=== PATIENT | male | born 1955 | race Caucasian/White ===

== ENCOUNTER 2017-11-29 08:32 | Inpatient (IN) | payer BC ==
[2017-11-29] MEDS: LACTATED RINGER'S 1,000 ML IV* (06:00)
[~2017-11-29 08:32] MED LIST: ATROPINE 1 MG/10 ML SYRINGE IV; DIPHENHYDRAMINE 50 MG INJ IV; FENTAnyl 50 MCG/ML VIAL IV; HYDROmorphONE (0.2 MG/ML) 10ML SYG IV; LABETALOL HCL 20MG INJ IV; MEPERIDINE 25 MG INJ IV; MIDAZOLAM 1 MG/ML 2 ML INJ IV; ONDANSETRON 4 MG INJ IV; OXYCODONE/ACETAMINOPHEN (5/325) TAB PO; hydrALAzine 20 MG INJ IV; morphine (1 MG/ML) 10ML SYRINGE IV
[2017-11-29] MEDS ORDERED: FENTAnyl 50 MCG/ML VIAL ×2 (10:19→11:17)
[2017-11-29] MEDS ORDERED: GLYCOPYRROLATE 0.4 MG INJ ×2 (10:19→11:17)
[2017-11-29] MEDS ORDERED: ROCURONIUM 50 MG INJ ×2 (10:19→11:17)
[2017-11-29] MEDS ORDERED: LIDOCAINE 2% (SDV) 5 ML INJ ×2 (10:19→11:17)
[2017-11-29] MEDS ORDERED: NEOSTIGMINE 3 MG/3 ML SYRINGE ×2 (10:19→11:17)
[2017-11-29] MEDS ORDERED: PROPOFOL 20 ML ×2 (10:19→11:17)
[2017-11-29] MEDS ORDERED: MIDAZOLAM 1 MG/ML 2 ML INJ ×2 (10:20→11:17)
[2017-11-29] MEDS: CEFAZOLIN 2 GM/50 ML (PMX) 50 ML IVPB (11:14)
[2017-11-29] MEDS ORDERED: DEXAMETHASONE 4 MG/ML 1 ML INJ (11:17)
[2017-11-29] MEDS: POLYMYXIN/BACITRACIN 1L IRRIG (12:46)
[2017-11-29] MEDS: BUPIVACAINE 0.25% (MPF) 30 ML INJ (12:46)
[2017-11-29] MEDS ORDERED: LABETALOL HCL 20MG INJ (12:55)
[2017-11-29] MEDS ORDERED: LIDOCAINE 4% CR (13:13)
[2017-11-29] MEDS ORDERED: ONDANSETRON 4 MG INJ IV (14:30)
[2017-11-29] MEDS ORDERED: AL HYDROX/MG HYDROX/SIMETH 30 ML CUP PO (14:30)
[2017-11-29] MEDS ORDERED: DIAZEPAM 5 MG/ML SYG IM (14:30)
[2017-11-29] MEDS ORDERED: DIAZEPAM 5 MG TAB PO (14:30)
[2017-11-29] MEDS ORDERED: NACL 0.9% 3 ML SYG IV (14:30)
[2017-11-29] MEDS ORDERED: BETHANECHOL 25 MG TAB PO (14:30)
[2017-11-29] MEDS ORDERED: HYDROCODONE/APAP (5/325) TAB PO (14:30)
[2017-11-29] MEDS ORDERED: PROCHLORPERAZINE 10 MG TAB PO (14:30)
[2017-11-29] MEDS ORDERED: ZOLPIDEM 5 MG TAB PO (14:30)
[2017-11-29] MEDS ORDERED: ACETAMINOPHEN 325 MG TAB PO (14:30)
[2017-11-29] MEDS ORDERED: NALOXONE (0.4 MG/ML) INJ IV (14:30)
[2017-11-29] MEDS ORDERED: TRIMETHOBENZAMIDE 100 MG/ML VIAL IM (14:30)
[2017-11-29] MEDS ORDERED: DIPHENHYDRAMINE 50 MG CAP PO (14:30)
[2017-11-29] MEDS: EPHEDrine SULFATE 50 MG/5 ML SYG IV (14:39)
[2017-11-29] MEDS: HYDROmorphONE 0.2 MG/ML PCA IV (14:45)
[2017-11-29] MEDS: FENTAnyl 50 MCG/ML VIAL IV ×2 (14:52→15:16)
[2017-11-29] MEDS: CEFAZOLIN 1 GM/50 ML (PMX) 50 ML IVPB ×2 (17:28→23:06)
[2017-11-29] MEDS: DEXTROSE 5%-0.45% NACL 1,000 ML IV ×2 (18:45→18:46)
[2017-11-29] MEDS: DEXTROSE 5%-0.45% NACL 500 ML BAG IV (18:47)
[2017-11-29] MEDS: RANITIDINE 150 MG TAB PO (20:51)
[2017-11-30] MEDS: DEXTROSE 5%-0.45% NACL 1,000 ML IV ×3 (03:45→23:45)
[2017-11-30] MEDS: CEFAZOLIN 1 GM/50 ML (PMX) 50 ML IVPB ×2 (05:29→12:03)
[2017-11-30 05:42] LABS: HEMATOCRIT 37.2 % (42.0-52.0); HEMOGLOBIN 12.8 g/dl (14.0-18.0)
[2017-11-30] MEDS: CEPASTAT LOZENGE MT ×2 (05:49→20:11)
[2017-11-30 06:24] LABS: ANION GAP 13 (8-16); BLOOD UREA NITROGEN 19 mg/dl (7-20); CALCIUM 9.1 mg/dl (8.4-10.2); CARBON DIOXIDE 26 mmol/L (21-31); CHLORIDE 103 mmol/L (97-110); CREATININE 0.95 mg/dl (0.61-1.24); GLUCOSE 121 mg/dl (70-220); SODIUM 138 mmol/L (135-144)
[2017-11-30] MEDS: RANITIDINE 150 MG TAB PO ×2 (08:40→20:11)
[2017-11-30] MEDS: FERROUS SULFATE (EC) 325 MG TAB PO ×3 (08:40→20:11)
[2017-11-30] MEDS: DOCUSATE SODIUM 100 MG CAP PO ×2 (08:41→20:11)
[2017-11-30] MEDS: ASCORBIC ACID 500 MG TAB PO ×2 (08:41→20:11)
[2017-11-30] MEDS: BETHANECHOL 25 MG TAB PO (09:28)
[2017-11-30] MEDS: BISACODYL 10 MG SUPP PR (10:00)
[2017-11-30] MEDS ORDERED: BISACODYL 10 MG SUPP PR (10:08)
[2017-11-30] MEDS: HYDROCODONE/APAP (5/325) TAB PO ×2 (11:39→20:12)
[2017-11-30 12:17] LABS: ADD UMIC YES; UR ASCORBIC ACID NEGATIVE (NEGATIVE); UR BILIRUBIN (Dip) NEGATIVE (NEGATIVE); UR BLOOD (Dip) 1+ mg/dL (NEGATIVE); UR CLARITY CLEAR (CLEAR); UR COLOR STRAW (YELLOW); UR GLUCOSE (Dip) NEGATIVE (NEGATIVE); UR KETONES (Dip) NEGATIVE (NEGATIVE); UR LEUKOCYTE ESTERASE (Dip) TRACE Leu/ul (NEGATIVE); UR MUCUS FEW /HPF (NONE SEEN); UR NITRITE (Dip) NEGATIVE (NEGATIVE); UR RBC 17 /HPF (0-5); UR SPECIFIC GRAVITY (Dip) 1.011 (1.003-1.030); UR TOTAL PROTEIN (Dip) NEGATIVE (NEGATIVE); UR UROBILINOGEN (Dip) NEGATIVE (NEGATIVE); UR WBC 2 /HPF (0-5)
[2017-11-30] MEDS ORDERED: HYDROCODONE/APAP (5/325) TAB PO (13:30)
[2017-11-30] MEDS: NA PHOSPHATE/BIPHOS 133 ML ENEMA PR ×2 (16:33→17:00)
[2017-11-30] MEDS: MAGNESIUM HYDROXIDE 30ML CUP PO (18:05)
[2017-12-01] MEDS: HYDROCODONE/APAP (5/325) TAB PO ×2 (02:27→09:09)
[2017-12-01] MEDS: FERROUS SULFATE (EC) 325 MG TAB PO (09:06)
[2017-12-01] MEDS: RANITIDINE 150 MG TAB PO (09:06)
[2017-12-01] MEDS: ASCORBIC ACID 500 MG TAB PO (09:06)
[2017-12-01] MEDS: DOCUSATE SODIUM 100 MG CAP PO (09:06)
[2017-12-01] MEDS: DEXTROSE 5%-0.45% NACL 1,000 ML IV (09:45)
== END 2017-12-01 11:05 | disposition home or self-care (01) | DRG 520 ==
LOC: REC 08:32 → MS1 16:00
PROC: 0SB20ZZ Excision of Lumbar Vertebral Disc, Open Approach (ICD-10-PCS; principal; 2017-11-29 10:00)
PROC: 01NB0ZZ Release Lumbar Nerve, Open Approach (ICD-10-PCS; 2017-11-29 10:00)
PROC: 4A11X4G Monitoring of Peripheral Nervous Electrical Activity, Intraoperative, External Approach (ICD-10-PCS; 2017-11-29 10:00)
DX: M48.061 Spinal stenosis, lumbar region without neurogenic claudication (principal); M51.26 Other intervertebral disc displacement, lumbar region; I10 Essential (primary) hypertension; F17.200 Nicotine dependence, unspecified, uncomplicated
CPT/HCPCS: 72020; 80048; 81001; 85014; 85018; 86850; 86900; 86901; 86920; 87086; 88304; 88311; 97116; 97162; 97530

== ENCOUNTER 2018-08-27 07:52 | Inpatient (IN) | payer BC ==
[2018-08-23 12:38] LABS: INR 0.92; PROTIME 12.4 Sec (11.9-14.9)
[2018-08-23 12:39] LABS: PARTIAL THROMBOPLASTIN TIME 30.8 Sec (23.0-35.0)
[2018-08-27] MEDS ORDERED: CEFAZOLIN 1 GM INJ (09:02)
[2018-08-27] MEDS ORDERED: MIDAZOLAM 1 MG/ML 2 ML INJ (09:02)
[2018-08-27] MEDS ORDERED: PROPOFOL 20 ML (09:02)
[2018-08-27] MEDS ORDERED: ONDANSETRON 4 MG INJ (09:02)
[2018-08-27] MEDS ORDERED: GLYCOPYRROLATE 0.4 MG INJ (09:02)
[2018-08-27] MEDS ORDERED: NEOSTIGMINE 3 MG/3 ML SYRINGE (09:02)
[2018-08-27] MEDS ORDERED: DEXAMETHASONE 4 MG/ML 1 ML INJ (09:02)
[2018-08-27] MEDS ORDERED: FENTAnyl 50 MCG/ML VIAL (09:02)
[2018-08-27] MEDS ORDERED: ROCURONIUM 50 MG INJ (09:02)
[2018-08-27] MEDS ORDERED: CEFAZOLIN 2 GM/50 ML (PMX) 50 ML IVPB (09:57)
[2018-08-27] MEDS ORDERED: hydrALAzine 20 MG INJ IV (10:30)
[2018-08-27] MEDS ORDERED: IPRATROPIUM (NEB) 0.5 MG/2.5 ML AMP HHN (10:30)
[2018-08-27] MEDS ORDERED: ONDANSETRON 4 MG INJ IV ×2 (10:30→13:00)
[2018-08-27] MEDS ORDERED: MEPERIDINE 25 MG INJ IV (10:30)
[2018-08-27] MEDS ORDERED: EPHEDrine SULFATE 50 MG/5 ML SYG IV (10:30)
[2018-08-27] MEDS ORDERED: FENTAnyl 50 MCG/ML VIAL IV ×3 (10:30)
[2018-08-27] MEDS ORDERED: LABETALOL HCL 20MG INJ IV (10:30)
[2018-08-27] MEDS ORDERED: DIPHENHYDRAMINE 50 MG INJ IV (10:30)
[2018-08-27] MEDS ORDERED: HYDROmorphONE 1 MG/5 ML IV SYRINGE IV ×3 (10:30)
[2018-08-27] MEDS ORDERED: OXYCODONE/ACETAMINOPHEN (5/325) TAB PO ×2 (10:30)
[2018-08-27] MEDS ORDERED: TRIMETHOBENZAMIDE 100 MG/ML VIAL IM ×2 (10:30→13:00)
[2018-08-27] MEDS ORDERED: MIDAZOLAM 1 MG/ML 2 ML INJ IV (10:30)
[2018-08-27] MEDS ORDERED: ALBUTEROL 0.083% (NEB) 2.5 MG/3 ML AMP HHN (10:30)
[2018-08-27] MEDS: BUPIVACAINE 0.25% (MPF) 30 ML INJ (10:42)
[2018-08-27] MEDS: POLYMYXIN/BACITRACIN 1L IRRIG (10:42)
[2018-08-27] MEDS ORDERED: LABETALOL HCL 20MG INJ (11:24)
[2018-08-27] MEDS: DEXTROSE 5%-0.45% NACL 1,000 ML IV ×3 (12:44→23:18)
[2018-08-27] MEDS ORDERED: DIAZEPAM 5 MG TAB PO (13:00)
[2018-08-27] MEDS ORDERED: ACETAMINOPHEN 325 MG TAB PO (13:00)
[2018-08-27] MEDS ORDERED: DIPHENHYDRAMINE 50 MG CAP PO (13:00)
[2018-08-27] MEDS ORDERED: PROCHLORPERAZINE 10 MG TAB PO (13:00)
[2018-08-27] MEDS ORDERED: HYDROCODONE/APAP (5/325) TAB PO (13:00)
[2018-08-27] MEDS ORDERED: NACL 0.9% 3 ML SYG IV (13:00)
[2018-08-27] MEDS ORDERED: NALOXONE (0.4 MG/ML) INJ IV (13:00)
[2018-08-27] MEDS ORDERED: DIAZEPAM 5 MG/ML SYG IM (13:00)
[2018-08-27] MEDS ORDERED: AL HYDROX/MG HYDROX/SIMETH 30 ML CUP PO (13:00)
[2018-08-27] MEDS ORDERED: CEPASTAT LOZENGE MT (13:00)
[2018-08-27] MEDS ORDERED: ZOLPIDEM 5 MG TAB PO (13:00)
[2018-08-27] MEDS: HYDROmorphONE 0.2 MG/ML PCA IV (13:10)
[2018-08-27] MEDS: CEFAZOLIN 1 GM/50 ML (PMX) 50 ML IVPB ×2 (17:54→23:17)
[2018-08-27] MEDS: RANITIDINE 150 MG TAB PO (20:10)
[2018-08-28] MEDS: CEFAZOLIN 1 GM/50 ML (PMX) 50 ML IVPB ×2 (05:06→11:22)
[2018-08-28 05:14] LABS: HEMATOCRIT 36.6 % (42.0-52.0); HEMOGLOBIN 12.1 g/dl (14.0-18.0)
[2018-08-28 05:54] LABS: ANION GAP 7 (5-13); BLOOD UREA NITROGEN 16 mg/dl (7-20); CALCIUM 8.4 mg/dl (8.4-10.2); CARBON DIOXIDE 27 mmol/L (21-31); CHLORIDE 104 mmol/L (97-110); CREATININE 0.91 mg/dl (0.61-1.24); Estimated GFR > 60 mL/min (>60); GLUCOSE 144 mg/dl (70-220); POTASSIUM 4.9 mmol/L (3.5-5.1); SODIUM 138 mmol/L (135-144)
[2018-08-28] MEDS ORDERED: BETHANECHOL 25 MG TAB PO (08:00)
[2018-08-28] MEDS: DEXTROSE 5%-0.45% NACL 1,000 ML IV (08:44)
[2018-08-28] MEDS: FERROUS SULFATE (EC) 325 MG TAB PO (08:45)
[2018-08-28] MEDS: DOCUSATE SODIUM 100 MG CAP PO (08:45)
[2018-08-28] MEDS: BETHANECHOL 25 MG TAB PO (08:46)
[2018-08-28] MEDS: RANITIDINE 150 MG TAB PO (08:46)
[2018-08-28] MEDS: LISINOPRIL 20 MG TAB PO (08:46)
[2018-08-28] MEDS: ASCORBIC ACID 500 MG TAB PO (08:46)
[2018-08-28] MEDS: HYDROCODONE/APAP (5/325) TAB PO ×2 (08:47→09:50)
[2018-08-28 09:54] LABS: ADD UMIC YES; UR ASCORBIC ACID NEGATIVE (NEGATIVE); UR BILIRUBIN (Dip) NEGATIVE (NEGATIVE); UR BLOOD (Dip) 1+ mg/dL (NEGATIVE); UR CLARITY CLEAR (CLEAR); UR COLOR COLORLESS (YELLOW); UR GLUCOSE (Dip) NEGATIVE (NEGATIVE); UR KETONES (Dip) NEGATIVE (NEGATIVE); UR LEUKOCYTE ESTERASE (Dip) NEGATIVE Leu/ul (NEGATIVE); UR NITRITE (Dip) NEGATIVE (NEGATIVE); UR RBC 0 /HPF (0-5); UR SPECIFIC GRAVITY (Dip) 1.003 (1.003-1.030); UR TOTAL PROTEIN (Dip) NEGATIVE (NEGATIVE); UR UROBILINOGEN (Dip) NEGATIVE (NEGATIVE); UR WBC 0 /HPF (0-5)
== END 2018-08-28 12:36 | disposition home or self-care (01) | DRG 520 ==
LOC: REC 07:52 → MS1 13:35
PROC: 0SB20ZZ Excision of Lumbar Vertebral Disc, Open Approach (ICD-10-PCS; principal; 2018-08-27 09:30)
PROC: 4A11X4G Monitoring of Peripheral Nervous Electrical Activity, Intraoperative, External Approach (ICD-10-PCS; 2018-08-27 09:30)
DX: M51.26 Other intervertebral disc displacement, lumbar region (principal); M51.36 Other intervertebral disc degeneration, lumbar region; I10 Essential (primary) hypertension; Z87.891 Personal history of nicotine dependence
CPT/HCPCS: 72020; 80048; 81001; 85014; 85018; 85610; 85730; 86850; 86900; 86901; 86920; 87086; 97116; 97161